=== PATIENT | male | born 1985 | race Caucasian/White ===

== ENCOUNTER 2017-12-17 10:58 | Inpatient (IN) | payer OTHER ==
[2017-12-17 11:54] LABS: #Eosinphils 0.1 thou/uL (0.0-0.7); #Lymphocytes 1.5 thou/uL (1.20-3.40); #Monocytes 0.4 thou/uL (0.11-0.59); #Neutrophils 6.6 thou/uL (1.40-6.50); %Basophils 0.4 % (0.0-1.0); %Eosinophils 0.8 % (0.0-10.0); %Lymphocytes 17.3 % (21.0-51.0); %Monocytes 4.7 % (0.0-10.0); %Neutrophils 76.8 % (42.0-75.0); Hemoglobin 15.1 g/dL (14.0-18.0); Mean Corpuscular HGB CONC 34.2 g/dL (32.0-36.0); Mean Corpuscular Hemoglobin 31.1 pg (27.0-31.0); Mean Corpuscular Volume 90.9 fl (80.0-94.0); Mean Platelet Volume 6.5 fL (7.4-10.4); Platelet Count 289 thou/uL (130-400); RBC Distribution Width 11.3 % (11.5-14.5); Red Blood Cell (RBC) Count 4.87 mill/uL (4.70-6.10); White Blood Cell (WBC) Count 8.6 thou/uL (4.8-10.8)
[2017-12-17 12:12] LABS: ALT (SGPT) 17 U/L (8-55); AST (SGOT) 13 U/L (5-34); Albumin 4.3 g/dL (3.5-5.0); Alkaline Phosphatase 79 U/L (40-150); Anion Gap 13 mmol/L (10-20); BUN (Urea Nitrogen) 10 mg/dL (8.9-20.6); Bilirubin, Total 0.4 mg/dL (0.2-1.2); Calc. Creatinine Clearance 0 mL/min (70-130); Carbon Dioxide 26 mmol/L (22-29); Chloride 102 mmol/L (98-107); Estimated GFR-MDRD Greater than 90; Globulin 3.6 g/dL (2.4-3.5); Glucose 141 mg/dL (70-105); Potassium 3.7 mmol/L (3.5-5.1); Protein, Total 7.9 g/dL (6.0-8.3); Sodium 137 mmol/L (136-145)
[2017-12-17 13:17] LABS: Bilirubin Negative (Negative); Blood, Urine Negative (Negative); Clarity CLOUDY (Clear); Glucose, Urine (Dipstick) Negative (Negative); Leukocyte Negative (Negative); Nitrite Negative (Negative); Protein, Urine (Dipstick) 30 mg/dL (Neg-Trace); Specific Gravity, Urine 1.025 (1.002-1.036); pH, Urine 6.5 (5.0-9.0)
[2017-12-17] MEDS ORDERED: Morphine 2 MG/ML SYRINGE ONE (13:18)
[2017-12-17 13:20] LABS: Bacteria/HPF None Seen HPF (None Seen); Pathc Cast-AUWi Flag 0.54 (0-2.49); RBC/HPF 0-3 HPF (0-3); Squamous Epithelial 0-3 HPF (0-3)
[2017-12-17 13:22] LABS: Yeast-AUWi Flag 51.2 (0-25.0)
[2017-12-17 13:33] LABS: Hyaline Casts/LPF 0-3 HYALINE CAST LPF (0-3 Hyaline); Sperm/HPF 2+ HPF (None Seen); Yeast-All Forms None Seen HPF (None Seen)
[2017-12-17 13:34] LABS: Renal Epithelial None Seen HPF (0-3); Transitional Epithelial NONE SEEN HPF (0-3); WBC/HPF 0-3 HPF (0-3)
[2017-12-17] MEDS ORDERED: HYDROcodone/Acetaminophen 5/325 mg Tablet ONE (14:37)
[2017-12-17] MEDS ORDERED: Morphine 5 MG/ML SYRINGE SLOW IVP PRN ×3 (17:42→18:33)
[2017-12-17] MEDS ORDERED: Ondansetron ODT 4 MG TAB SL PRN (17:42)
[2017-12-17] MEDS ORDERED: HYDROcodone/Acetaminophen 5/325 mg Tablet PO PRN ×2 (17:42)
[2017-12-17] MEDS ORDERED: Ondansetron HCl/PF 4 MG/2 ML Vial IVP PRN ×2 (17:42→18:33)
[2017-12-17] MEDS ORDERED: HYDROcodone/Acetaminophen 10/325 mg Tablet PO PRN (18:33)
[2017-12-17] MEDS: Vancomycin HCl 1.25 GM in Sodium Chloride 0.9% 250 ML 250 ML IVPB SCH (20:14)
[2017-12-17] MEDS: HYDROcodone/Acetaminophen 10/325 mg Tablet PO PRN (22:31)
[2017-12-18] MEDS: HYDROcodone/Acetaminophen 10/325 mg Tablet PO PRN ×2 (06:05→13:32)
[2017-12-18] MEDS: Vancomycin HCl 1.25 GM in Sodium Chloride 0.9% 250 ML 250 ML IVPB SCH (07:57)
[2017-12-18] MEDS ORDERED: Bupivacaine/Epinephrine 0.25% 30 ML VIAL ONE (08:41)
[2017-12-18] MEDS ORDERED: Midazolam HCl 2 mg/2 ml Vial ONE (08:45)
[2017-12-18] MEDS ORDERED: Morphine 2 MG/ML SYRINGE ONE (10:26)
[2017-12-18] MEDS ORDERED: Promethazine HCl 25 MG/ML VIAL SLOW IVP PRN (10:36)
[2017-12-18] MEDS ORDERED: Promethazine HCl 25 MG/ML VIAL IM PRN (10:36)
[2017-12-18] MEDS ORDERED: Ondansetron HCl/PF 4 MG/2 ML Vial IVP PRN (10:36)
--- NOTE | 2017-12-18 10:45 | OP ---
DATE OF PROCEDURE: 12/18/2017 PREOPERATIVE DIAGNOSES: Infected hidradenitis with abscess right axilla and groin. SURGEON: Gautam Busby M.D. PROCEDURE PERFORMED: Incision and drainage and debridement. INDICATIONS: This is a 32-year-old male with hidradenitis who developed abscesses in his right axill a and groin. FINDINGS: About a 6 cm abscess right axilla, a 3 cm abscess right inner thigh at the scrotal area. PROCEDURE: After informed consent was obtained, the patient was taken to the operating room, given g eneral mask anesthesia, placed in the supine position. His axilla and groin were prepped and draped in usual fashion. An elliptical incision was performed with a 15 blade scalpel. Subq divided sharpl y. The abscess cavity had already decompress, it was fully unroofed and washed with saline. Hemosta sis achieved with electrocautery, packed open with Betadine gauze. I then moved to the right groin. Again, a 15 blade used to make an elliptical incision to excise the skin and open up this cavity, ir rigated with saline and hemostasis with electrocautery, packed with Betadine gauze. Sterile bandage applied. The patient tolerated the procedure well and was transferred to recovery in good condition. Sponge, needle count verified correct x2.
[2017-12-18 16:47] VITALS: BP 126/64; TEMP 98
== END 2017-12-18 17:45 | disposition home or self-care (01) | DRG 581 ==
LOC: ERS 10:58 → 3SE 17:01
PROVIDERS: ADMIT Surgery; ATTEND Surgery
PROC: 0X940ZZ Drainage of Right Axilla, Open Approach (ICD-10-PCS; principal; 2017-12-18)
PROC: 0Y950ZZ Drainage of Right Inguinal Region, Open Approach (ICD-10-PCS; 2017-12-18)
DX: L73.2 Hidradenitis suppurativa (principal); L02.214 Cutaneous abscess of groin; L02.411 Cutaneous abscess of right axilla; F17.210 Nicotine dependence, cigarettes, uncomplicated
CPT/HCPCS: 36415; 80053; 81003; 81015; 85025; 87040; 87070; 87077; 87086; 87186; 87205; 96365; 96366; 96375; J2270; J0131; J2175; J2250; J3370; J7050

== ENCOUNTER 2017-12-21 11:48 | Emergency (ER) | payer OTHER ==
[2017-12-21 12:33] LABS: #Eosinphils 0.2 thou/uL (0.0-0.7); #Lymphocytes 1.7 thou/uL (1.20-3.40); #Monocytes 0.7 thou/uL (0.11-0.59); #Neutrophils 5.7 thou/uL (1.40-6.50); %Basophils 0.2 % (0.0-1.0); %Eosinophils 1.9 % (0.0-10.0); %Lymphocytes 20.7 % (21.0-51.0); %Monocytes 8.1 % (0.0-10.0); %Neutrophils 69.1 % (42.0-75.0); Hemoglobin 15.6 g/dL (14.0-18.0); Mean Corpuscular HGB CONC 34.1 g/dL (32.0-36.0); Mean Corpuscular Hemoglobin 30.4 pg (27.0-31.0); Mean Corpuscular Volume 89.1 fl (80.0-94.0); Mean Platelet Volume 6.1 fL (7.4-10.4); Platelet Count 383 thou/uL (130-400); RBC Distribution Width 11.4 % (11.5-14.5); Red Blood Cell (RBC) Count 5.13 mill/uL (4.70-6.10); White Blood Cell (WBC) Count 8.2 thou/uL (4.8-10.8)
[2017-12-21 12:56] LABS: ALT (SGPT) 15 U/L (8-55); AST (SGOT) 12 U/L (5-34); Albumin 4.4 g/dL (3.5-5.0); Alkaline Phosphatase 68 U/L (40-150); Anion Gap 12 mmol/L (10-20); BUN (Urea Nitrogen) 7 mg/dL (8.9-20.6); Bilirubin, Total 0.3 mg/dL (0.2-1.2); Calc. Creatinine Clearance 0 mL/min (70-130); Calcium 9.8 mg/dL (7.8-10.44); Carbon Dioxide 29 mmol/L (22-29); Chloride 103 mmol/L (98-107); Estimated GFR-MDRD Greater than 90; Globulin 3.6 g/dL (2.4-3.5); Glucose 88 mg/dL (70-105); Potassium 3.5 mmol/L (3.5-5.1); Sodium 140 mmol/L (136-145)
== END 2017-12-21 13:56 | disposition home or self-care (01) ==
LOC: ERS 11:48
DX: Z48.817 Encounter for surgical aftercare following surgery on the skin and subcutaneous tissue (principal); R58 Hemorrhage, not elsewhere classified; Z87.891 Personal history of nicotine dependence
CPT/HCPCS: 36415; 80053; 85025; 99283

== ENCOUNTER 2018-01-14 09:06 | Day surgery (SDC) | payer OTHER ==
[2018-01-13 14:54] VITALS: BMI 22.1
[2018-01-14] MEDS ORDERED: Bupivacaine/Epinephrine 0.25% 30 ML VIAL ONE (10:57)
[2018-01-14] MEDS ORDERED: Midazolam HCl 2 mg/2 ml Vial ONE ×2 (10:59→11:02)
[2018-01-14] MEDS ORDERED: HYDROmorphone 0.5 MG/0.5 ML SYRINGE ONE (11:02)
[2018-01-14] MEDS ORDERED: Fentanyl 100 MCG/2 ML VIAL ONE ×2 (11:02→12:14)
--- NOTE | 2018-01-14 12:52 | OP ---
DATE OF PROCEDURE: 01/14/2018 PREOPERATIVE DIAGNOSIS: Axillary abscess, bilateral. SURGEON: Gautam Busby M.D. PROCEDURE PERFORMED: Incision and drainage and debridement, bilateral axillary abscess. INDICATIONS: A 32-year-old male with hidradenitis who has developed 3 more abscesses, one on the rig ht and two on the left. FINDINGS: 4 x 2 cm abscess cavities. Cultures were obtained. PROCEDURE: After informed consent was obtained, the patient was taken to the operating room and give n general anesthesia. He was placed in the supine position. His axilla's were prepped and draped in usual fashion. Elliptical incisions were performed. Purulent fluid sent for culture. Hemostasis a chieved with electrocautery. The skin was excised, left open, irrigated with saline, packed damp to dry with gauze. The patient tolerated the procedure well and transferred to recovery in good conditi on. Sponge and needle count verified correct x2.
[2018-01-14] MEDS ORDERED: PROPOFOL 200 MG/20 ML VIAL ONE (14:03)
[2018-01-14] MEDS ORDERED: Ketorolac Tromethamine 30 MG/ML VIAL ONE (14:03)
[2018-01-14] MEDS ORDERED: Ondansetron HCl/PF 4 MG/2 ML Vial ONE (14:03)
[2018-01-14] MEDS ORDERED: Glycopyrrolate 0.2 MG/ML 5 ML SYRINGE ONE (14:03)
[2018-01-14] MEDS ORDERED: Lidocaine 1% PF 5 ML VIAL ONE (14:03)
--- NOTE | 2018-01-27 07:32 | DIS ---
DISCHARGE DIAGNOSIS: Infected hidradenitis with abscess right groin and axilla. PROCEDURES DURING ADMISSION: Incision, drainage, and debridement. HOSPITAL COURSE: The patient was admitted, given IV antibiotics, taken to the operating room where kristin lazaro underwent drainage of his infected hidradenitis. Postoperatively he did well. He was treated with wound care, discharged home tolerating a regular diet on doxycycline and clindamycin. He will follo w up with me in 2 weeks.
== END 2018-01-14 13:10 | disposition home or self-care (01) ==
LOC: SDC 09:06
PROVIDERS: ATTEND Surgery
PROC: 0J9F0ZZ Drainage of Left Upper Arm Subcutaneous Tissue and Fascia, Open Approach (ICD-10-PCS; principal; 2018-01-14)
PROC: 0J9D0ZZ Drainage of Right Upper Arm Subcutaneous Tissue and Fascia, Open Approach (ICD-10-PCS; principal; 2018-01-14)
DX: L02.412 Cutaneous abscess of left axilla (principal); L02.411 Cutaneous abscess of right axilla; F17.210 Nicotine dependence, cigarettes, uncomplicated; Z79.2 Long term (current) use of antibiotics; Z88.0 Allergy status to penicillin; Z88.1 Allergy status to other antibiotic agents; Z88.2 Allergy status to sulfonamides; Z98.890 Other specified postprocedural states
CPT/HCPCS: 85025; 87070; 87077; 87186; 87205; 88304; 96374; J1170; J1885; J2001; J2250; J2405; J2704; J3010; J3370

== ENCOUNTER 2018-04-29 15:17 | Outpatient (CLI) | payer OTHER ==
[2018-04-29 16:19] LABS: #Eosinphils 0.2 thou/uL (0.0-0.7); #Lymphocytes 1.5 thou/uL (1.20-3.40); #Monocytes 0.7 thou/uL (0.11-0.59); #Neutrophils 5.4 thou/uL (1.40-6.50); %Basophils 0.4 % (0.0-1.0); %Eosinophils 2.2 % (0.0-10.0); %Lymphocytes 19.5 % (21.0-51.0); %Monocytes 8.8 % (0.0-10.0); %Neutrophils 69.2 % (42.0-75.0); Hemoglobin 15.2 g/dL (14.0-18.0); Mean Corpuscular HGB CONC 35.2 g/dL (32.0-36.0); Mean Corpuscular Hemoglobin 31.5 pg (27.0-31.0); Mean Corpuscular Volume 89.3 fL (78.0-98.0); Mean Platelet Volume 6.6 fL (7.4-10.4); Platelet Count 233 thou/uL (130-400); RBC Distribution Width 12.1 % (11.5-14.5); Red Blood Cell (RBC) Count 4.82 mill/uL (4.70-6.10); White Blood Cell (WBC) Count 7.7 thou/uL (4.8-10.8)
== END 2018-04-29 15:18 | disposition home or self-care (01) ==
LOC: LABBT 15:17
PROVIDERS: ATTEND Surgery
DX: Z01.812 Encounter for preprocedural laboratory examination (principal); L73.2 Hidradenitis suppurativa
CPT/HCPCS: 85025

== ENCOUNTER → 2018-04-30 | Day surgery (SDC) | payer OTHER ==
[2018-04-29 15:27] VITALS: BMI 20.9
[~2018-04-30] MED LIST: Bupivacaine HCl 0.5%/Epinephrine 1:200,000/PF 30 ml Vial ONE; Fentanyl 100 MCG/2 ML VIAL ONE; Lidocaine 2% 10 ML INJ ONE; Midazolam HCl 2 mg/2 ml Vial ONE
--- NOTE | 2018-04-30 09:55 | OP ---
DATE OF PROCEDURE: 04/30/2018 PREOPERATIVE DIAGNOSIS: Infected hidradenitis of the axilla, bilateral. SURGEON: Gautam Busby M.D. PROCEDURE PERFORMED: Bilateral axillary skin excision. INDICATIONS: This is a 33-year-old male with many year history of hidradenitis to both of the groin, buttocks and inguinal area as well as axilla. He has had a previous excision of both axillae. He h as redeveloped inflammation and draining sinuses which are not responding to antibiotics. FINDINGS: A 6 x 3 cm piece of skin removed on the left axilla. A 7 x 4 cm and 1 x 3 cm right axilla ry excision. DESCRIPTION OF PROCEDURE: After informed consent was obtained, the patient was taken to the operatin g room and given general endotracheal anesthesia. He was placed in the supine position. His axillae were prepped and draped in usual fashion. Local anesthesia infiltrated subcutaneously and deep with 0.5% Marcaine. A wide elliptical incision was performed to excise all the sinus tracts and inflamma tion starting on the left. It was measured at 6 x 3 cm skin. This was sent to pathology. Hemostasi s achieved with electrocautery. I then moved to the right side. There were 2 areas, one more distal and one right in the axilla. A 7 x 4 cm section was removed closer to the chest wall and then a 1 x 3 cm one further down on the upper arm. Hemostasis achieved with electrocautery. They were irrigat ed thoroughly and then packed with Betadine gauze and then covered with dry gauze. Patient tolerated the procedure well and was transferred to recovery in good condition.
== END ==
LOC: SDC 06:14
PROVIDERS: ATTEND Surgery
PROC: 0HBBXZZ Excision of Right Upper Arm Skin, External Approach (ICD-10-PCS; principal; 2018-04-30)
PROC: 0HBCXZZ Excision of Left Upper Arm Skin, External Approach (ICD-10-PCS; principal; 2018-04-30)
DX: L73.2 Hidradenitis suppurativa (principal); F17.210 Nicotine dependence, cigarettes, uncomplicated; Z79.2 Long term (current) use of antibiotics; Z79.899 Other long term (current) drug therapy; Z88.0 Allergy status to penicillin; Z88.2 Allergy status to sulfonamides; Z88.8 Allergy status to other drugs, medicaments and biological substances
CPT/HCPCS: 85025; 88304; J0670; J2250; J3010; J3370

== ENCOUNTER 2019-10-23 17:17 | Observation (INO) | payer OTHER ==
[2019-10-23] MEDS ORDERED: Ondansetron PF 4 MG/2 ML Vial ONE (17:30)
[2019-10-23 17:44] LABS: Hemoglobin 14.9 g/dL (14.0-18.0); Mean Corpuscular HGB CONC 33.6 g/dL (32.0-36.0); Mean Corpuscular Hemoglobin 30.2 pg (27.0-31.0); Mean Corpuscular Volume 89.9 fL (78.0-98.0); Mean Platelet Volume 6.5 fL (7.4-10.4); Platelet Count 322 thou/uL (130-400); RBC Distribution Width 11.9 % (11.5-14.5); Red Blood Cell (RBC) Count 4.94 mill/uL (4.70-6.10); White Blood Cell (WBC) Count 5.6 thou/uL (4.8-10.8)
[2019-10-23 18:00] LABS: Band 5 % (5-11); Eosinophils 2 % (0-10); Lymphocytes 31 % (21-51); MDiff Complete? YES; Monocytes 9 % (0-10); Neutrophil 49 % (42-75); Platelet Morphology Comment Appears Adequate; RBC Morphology Normal; Reactive Lymphocytes 2 % (0-10)
[2019-10-23 18:02] LABS: ALT (SGPT) 18 U/L (8-55); AST (SGOT) 15 U/L (5-34); Albumin 4.4 g/dL (3.5-5.0); Alkaline Phosphatase 82 U/L (40-110); Anion Gap 22 mmol/L (10-20); BUN (Urea Nitrogen) 8 mg/dL (8.9-20.6); Bilirubin, Total 0.4 mg/dL (0.2-1.2); Calc. Creatinine Clearance 0 mL/min (70-130); Calcium 9.4 mg/dL (7.8-10.44); Carbon Dioxide 17 mmol/L (22-29); Chloride 103 mmol/L (98-107); Estimated GFR-MDRD Greater than 90; Globulin 3.8 g/dL (2.4-3.5); Glucose 120 mg/dL (70-105); Potassium 3.5 mmol/L (3.5-5.1); Protein, Total 8.2 g/dL (6.0-8.3); Sodium 138 mmol/L (136-145)
--- NOTE | 2019-10-23 18:37 | CT ---
CT Brain WO Con: 10/23/2019 6:18 PM CLINICAL HISTORY: History of seizure and head injury. IMAGING TECHNIQUE: Multiple CT images were obtained of the brain without IV contrast. COMPARISON: None. FINDINGS: Brain: No acute infarct or hemorrhage is evident. No midline shift. Ventricles: Normal. No hydrocephalus. Skull: Intact. Visualized Paranasal sinuses: Clear. Mastoid air cells:Clear. Extracranial soft tissues:Normal. IMPRESSION: No acute intracranial abnormality.
[2019-10-23] MEDS ORDERED: Lorazepam 2 MG/ML VIAL ONE (20:25)
[2019-10-23] MEDS ORDERED: levETIRAcetam 500 MG/100 ML PREMIX BAG ONE (20:26)
[2019-10-23] MEDS ORDERED: Ketorolac Tromethamine 30 MG/ML VIAL ONE (20:27)
[2019-10-23 20:31] LABS: Amphetamine Detected (NotDetected); Barbiturates Screen Not Detected (NotDetected); Benzodiazepine Screen Detected (NotDetected); Cocaine Metabolite Screen Not Detected (NotDetected); Medtox Control Line Valid? VALID (VALID); Medtox Reader # READER 1; Methadone Not Detected (NotDetected); Methamphetamine Detected (NotDetected); Opiate Screen Detected (NotDetected); Oxycodone Screen Not Detected (NotDetected); Phencyclidine (PCP) Not Detected (NotDetected); THC/Cannabinoid Screen Detected (NotDetected); Tricyclic Screen Detected (NotDetected)
[2019-10-23] MEDS ORDERED: Sodium Chloride 0.9% 1,000 ML IV SCH (21:43)
[2019-10-23] MEDS ORDERED: Lorazepam 2 MG/ML VIAL SLOW IVP PRN ×2 (21:43)
[2019-10-23 21:58] VITALS: BMI 22.0
[2019-10-23] MEDS: HYDROcodone/Acetaminophen 7.5/325 mg Tablet PO PRN (22:56)
[2019-10-24] MEDS ORDERED: Acetaminophen 650 MG Suppository PR PRN (00:07)
[2019-10-24] MEDS ORDERED: Acetaminophen 325 MG TAB PO PRN (00:07)
[2019-10-24] MEDS: Sodium Chloride 0.9% 1,000 ML IV SCH ×3 (00:33→10:19)
--- NOTE | 2019-10-24 02:14 | HP ---
TIME OF ASSESSMENT: 2199. CHIEF COMPLAINT: New onset of seizure. HISTORY OF PRESENT ILLNESS: Mr. Alicea is a 34-year-old gentleman with new onset of seizures. The patient states he had been up since 2 a.m. this morning and feeling well overall and taking care of his children and dogs while his rested. He states he drank approximately 5+ pots of coffee. He reports feeling some palpitations and feeling very overwhelmed. He has a history of anxiety and possibly depression associated with underlying hidradenitis suppurativa. The patient states he took a shower around 3:00 p.m. and was apparently found by his seizing on the shower floor. He denies any history of seizures in the past. Does not recall having any preceding headache, dizziness, or other symptoms. The patient did hit his forehead. Unclear how long he had been seizing for but it was described as a "tonic colonic" seizure. He was brought into the emergency department and in the ER, underwent an EKG that showed normal sinus rhythm with a rate of 97. He was given a dose of Keppra 500 mg IV. He was also given a dose of Ativan. However, this was after his urine sample was obtained. A urine drug screen was completed and positive for opiates, tricyclics, amphetamines, methamphetamines, and benzodiazepines as well as cannabinoids. When asked about his history of drug use, the patient states he has used drugs in the past and more recently did take a pill that which he was told would help him "stay awake and energetic." He is unsure what it contained. He underwent CT imaging of the head, which showed no evidence of acute intracranial process. Of note, prolactin was checked and elevated at 54.81. PAST MEDICAL HISTORY: 1. Hidradenitis. 2. Anxiety/depression. PAST SURGICAL HISTORY: Sweat gland lancing. SOCIAL HISTORY: The patient lives with his family. Denies drug use, but reports taking a pill today to help him stay awake which he states he was told was to maintain his energy. Reports being a chain smoker. ALLERGIES: 1. AMOXICILLIN. 2. BACTRIM. 3. SULFA. 4. TRIMETHOPRIM. CURRENT MEDICATIONS: Doxycycline (recently taken off clindamycin and switched to doxycycline due to diarrhea being caused by clindamycin). PHYSICAL EXAMINATION: GENERAL: The patient appears thin, well developed, and in no acute distress. VITAL SIGNS: Temperature 98.4, pulse 88, respirations 16, O2 saturation 98% on room air, and blood pressure 111/65. HEENT: Normocephalic and atraumatic. Pupils are equal, round, and reactive to light. Sclerae icterus. Oropharynx is clear. NECK: Supple. No lymphadenopathy. LUNGS: Clear to auscultation bilaterally without any wheezes, rales, or rhonchi. CARDIAC: Regular rate and rhythm without murmurs, rubs, or gallops. ABDOMEN: Soft, nontender, nondistended. Normoactive bowel sounds present. EXTREMITIES: No lower leg swelling or edema. NEUROLOGIC: Alert and oriented x3. No neuro deficits on exam. SKIN: Warm and dry. INVESTIGATIONS: As mentioned above in HPI. IMPRESSION AND PLAN: Mr. Alicea is a 34-year-old gentleman, who is being admitted for management of the following. 1. New onset of seizure. Potentially caused by drug use though the patient said it was the excessive caffeine intake. CT head was negative. Neuro consult has been placed. Further imaging such as MRI of the brain or EEG as per Neuro recommendations. We will continue Keppra which has been started in the ED. Seizure precautions, p.r.n. Ativan ordered. 2. Hidradenitis suppurativa. We will resume doxycycline which he takes at home. 3. Tobacco use. The patient offered nicotine, which he would like to hold off on for now. 4. Gastrointestinal prophylaxis with famotidine. 5. Deep venous thrombosis prophylaxis with mechanical SCDs. The patient is ambulatory. 6. Code status, full. Surrogate decision maker is his , Kashmir Alicea. The patient's case was discussed with attending, who agrees with plan of care as described above. Job ID: [id number] MTDD
[2019-10-24 05:09] LABS: Anion Gap 9 mmol/L (10-20); BUN (Urea Nitrogen) 8 mg/dL (8.9-20.6); Calc. Creatinine Clearance 138 mL/min (70-130); Calcium 8.1 mg/dL (7.8-10.44); Carbon Dioxide 25 mmol/L (22-29); Chloride 107 mmol/L (98-107); Estimated GFR-MDRD Greater than 90; Glucose 94 mg/dL (70-105); Potassium 3.7 mmol/L (3.5-5.1); Sodium 137 mmol/L (136-145)
[2019-10-24 05:20] LABS: Band 8 % (5-11); Eosinophils 2 % (0-10); Hemoglobin 12.9 g/dL (14.0-18.0); Hypochromia SLIGHT = 6-15 cells (100X) (0-5/hpf); Lymphocytes 15 % (21-51); MDiff Complete? YES; Mean Corpuscular HGB CONC 33.3 g/dL (32.0-36.0); Mean Corpuscular Hemoglobin 30.1 pg (27.0-31.0); Mean Corpuscular Volume 90.4 fL (78.0-98.0); Mean Platelet Volume 6.4 fL (7.4-10.4); Monocytes 12 % (0-10); Neutrophil 63 % (42-75); Platelet Count 259 thou/uL (130-400); Platelet Morphology Comment Appears Adequate; RBC Distribution Width 11.7 % (11.5-14.5); Red Blood Cell (RBC) Count 4.29 mill/uL (4.70-6.10)
[2019-10-24] MEDS: HYDROcodone/Acetaminophen 7.5/325 mg Tablet PO PRN (05:31)
[2019-10-24 07:55] VITALS: BP 104/58; TEMP 98.3
[2019-10-24] MEDS ORDERED: levETIRAcetam 500 MG TAB PO SCH (09:00)
[2019-10-24] MEDS ORDERED: Famotidine/PF 20 mg/2ml Vial SLOW IVP SCH (09:00)
[2019-10-24] MEDS ORDERED: Doxycycline 100 MG CAP PO SCH (09:00)
--- NOTE | 2019-10-25 10:35 | DIS ---
DATE OF ADMISSION: 10/23/2019 DATE OF DISCHARGE: 10/24/2019 DISCHARGE DISPOSITION: Home. PRIM JOSE DISCHARGE DIAGNOSES: New onset seizure secondary to polysubstance abuse and insomnia plus excessive caffeine. SECONDARY DISCHARGE DIAGNOSES: Substance abuse, history of chronic hidradenitis suppurativa, tobacco abuse, anxiety disorder. PROCEDURES DONE DURING HOSPITALIZATION: CT brain done showed no acute intracranial abnormality. Hemoglobin and hematocrit 13 and 38, platelet count 259 with 63% neutrophils. BUN 8, creatinine 0.7. Prolactin was 54.8 ng/mL. Urine tox screen was positive for opiates, tricyclics, amphetamine, methamphetamine, benzodiazepine, and cannabinoids. DISCHARGE MEDICATIONS: The patient to continue his; 1. Doxycycline twice daily for chronic hidradenitis suppurativa. 2. [place] p.r.n. for pain. ALLERGIES: AMOXICILLIN, SULFA. DISCHARGE PLAN: The patient to follow up with Dr. Juan Saldana in 1 week. BRIEF COURSE DURING HOSPITALIZATION: The patient initially came to the ER after having had a seizure at home. The patient was unable to sleep and in fact had nearly 5 pots of coffee in addition to his drug screen being positive for multiple street drugs. He has had an initial CT brain done, which did not reveal any acute intracranial abnormality. He was given a dose of Keppra in the ER. He was monitored closely on telemetry with seizure precautions. The patient was completely awake and has not had any further seizures on the floor. He is ambulating and eating well. He was counseled with regard to substance use and drinking excessive caffeine. Mr. Nixon Cantor was also counseled to have healthy sleep habit/ hygiene and was counseled regarding the same. He was advised to use biofeedback and other resources that he can avail on the Internet in addition to following up with primary care physician for help. The patient was not placed on any seizure medication due to provoked seizure. Please note, I have seen and examined the patient on the day of discharge. Job ID: [id number] MTDD
== END 2019-10-24 11:45 | disposition home or self-care (01) ==
LOC: ERS 17:17 → 2SW 21:45
PROVIDERS: ADMIT Family Medicine; ATTEND Family Medicine
DX: F19.188 Other psychoactive substance abuse with other psychoactive substance-induced disorder (principal); G47.00 Insomnia, unspecified; R56.9 Unspecified convulsions; F41.9 Anxiety disorder, unspecified; F32.9 Major depressive disorder, single episode, unspecified; L73.2 Hidradenitis suppurativa; F17.210 Nicotine dependence, cigarettes, uncomplicated; Z79.2 Long term (current) use of antibiotics; Z88.0 Allergy status to penicillin; Z88.2 Allergy status to sulfonamides; Z88.8 Allergy status to other drugs, medicaments and biological substances
CPT/HCPCS: 36415; 70450; 80048; 80053; 80306; 83735; 84146; 85025; 93005; 96361; 96374; 96375; G0378; J1885; J1953; J2060; J2405; S0028